=== PATIENT | female | born 1970 | race Caucasian/White ===

== ENCOUNTER → 2019-01-21 | Outpatient (CLI) | payer OTHER ==
--- NOTE | 2019-01-23 18:21 | WOMENS IMAGING REPORT ---
EXAM DESCRIPTION: 3D SCREENING MAMMO BILAT COMPLETED DATE/TIME: 01/21/2019 7:50 am REASON FOR STUDY: Z12.31 ENCOUNTER FOR SCREENING MAMMOGRAM FOR MALIGNANT NEOPLASM OF BREAST Z12.31 ENCNTR SCREEN MAMMOGRAM FOR MALIGNANT NEOPLASM OF [place] COMPARISON: None. EXAM PARAMETERS: Views: Standard craniocaudal and mediolateral oblique views of each breast recorded using digital acquisition and breast tomosynthesis. Read with the assistance of CAD. .[facility] [place] [employer] Version 9.2 LIMITATIONS: None. FINDINGS: No suspicious masses, suspicious calcifications or architectural distortion. No areas of c oncern. IMPRESSION: NEGATIVE MAMMOGRAM. BIRADS 1. BREAST DENSITY: b. There are scattered areas of fibroglandular density. BIRAD: ASSESSMENT: 1 NEGATIVE RECOMMENDATION: ROUTINE SCREENING COMMENT: The patient has been notified of the results by letter per MQSA requirements. Additional no tification policies are in place for contacting patient with suspicious or incomplete findings. Quality ID #[id number]: [employer] recommends an annual screening mammogram for women aged 40 years or over. This facility utilizes a reminder system to ensure that all patients receive reminder letters, and/or direct phone calls for appointments. This includes reminders for routine scr eening mammograms, diagnostic mammograms, or other Breast Imaging Interventions when appropriate. Th is patient will be placed in the appropriate reminder system. TECHNICAL DOCUMENTATION: FINDING NUMBER: (1) ASSESSMENT: (1) JOB ID: [id number] [employer]- All Rights Reserved Reading location - IP/workstation name: [email or web address]
== END ==
LOC: WI 07:28
PROVIDERS: ATTEND Advanced Practice Midwife
DX: Z12.31 Encounter for screening mammogram for malignant neoplasm of breast (principal)
CPT/HCPCS: 77063; 77067

== ENCOUNTER 2019-06-30 13:27 | Emergency (ER) | payer OTHER ==
--- NOTE | 2019-06-30 14:26 | ER Document Report ---
HPI - HPI Patient complains to provider of: Left wrist pain Time Seen by Provider: 06/30/19 14:19 Onset: Other Onset/Duration: Sudden, Persistent Pain Level: 3 Context: 49-year-old female presents to the emergency department with complaints of left wrist pain. She reports that approximately 1 week ago she was pushing big tubs of [place] supplies up into the attic when she hurt her wrist. She reports the pain was tolerable. Today when she went to lift up a heavy bag of dog food she felt a pop in her left wrist and has pain with supination pronation since that time. Possible fracture to the wrist when she was a child. Denies other symptoms such as fever vomiting diarrhea. No obvious deformity to the left wrist good radial pulse cap refill less than 2 seconds. Patient was offered Motrin but declined. Associated Symptoms: None Exacerbated by: Other - Supination pronation Relieved by: Denies Similar symptoms previously: No Recently seen / treated by doctor: No Past Medical History - General Information source: Patient - Social History Smoking Status: Never Smoker Frequency of alcohol use: Rare Drug Abuse: None Occupation: Works from home Lives with: Family Family History: None Patient has suicidal ideation: No Patient has homicidal ideation: No Endocrine Medical History: Reports: Hx Hypothyroidism Surgical Hx: Negative Vertical Provider Document - CONSTITUTIONAL Agree With Documented VS: Yes Exam Limitations: No Limitations General Appearance: WD/WN, No Apparent Distress - INFECTION CONTROL TRAVEL OUTSIDE OF THE [place] IN LAST 30 DAYS: No - HEENT HEENT: Atraumatic, Normocephalic - NECK Neck: Supple - RESPIRATORY Respiratory: Breath Sounds Normal, No Respiratory Distress - CARDIOVASCULAR Cardiovascular: Regular Rate, Regular Rhythm - MUSCULOSKELETAL/EXTREMETIES Musculoskeletal/Extremeties: MAEW, Tender - Left lateral wrist tender to palpate good radial pulse cap refill less than 2 seconds. No erythema no swelling no warmth no obvious deformity reports pain when moving her hand from supination to pronation and back - NEURO Level of Consciousness: Awake, Alert, Appropriate Motor/Sensory: No Motor Deficit - DERM Integumentary: Warm, Dry Course - Re-evaluation Re-evalutation: 06/30/19 14:24 49-year-old female with left wrist pain no obvious deformity no swelling no erythema no warmth. Reports that she hurt it when she was pushing some heavy tubs up to the attic and also hurting today when she was lifting heavy bag of dog food. 06/30/19 15:22 X-ray negative for fracture. Patient was instructed on cock-up splint for comfort also instructed to follow-up with primary care provider for referral to orthopedics as indicated. She verbalized understanding to all instructions. Wrist X-Ray 06/30/19 14:22 IMPRESSION: NEGATIVE STUDY OF THE LEFT WRIST. NO RADIOGRAPHIC EVIDENCE OF ACUTE INJURY. - Vital Signs Vital signs: Temp Pulse Resp BP Pulse Ox 97.6 F 81 16 134/78 H 95 06/30/19 13:31 06/30/19 13:31 06/30/19 13:31 06/30/19 13:31 06/30/19 13:31 - Diagnostic Test Radiology reviewed: Image reviewed, Reports reviewed Procedures - Immobilization Left Wrist Pre-Proc Neuro Vasc Exam: Normal Immobilizer type: Cock-up Performed by: PCT Post-Proc Neuro Vasc Exam: Unchanged from pre-exam Discharge - Discharge Clinical Impression: Left wrist pain Condition: Stable Disposition: HOME, SELF-CARE Instructions: Use of [id number]-[id number]-Ohdlpwf Ibuprofen ([facility]), Ice & Elevation ([facility]), Temporary Splint ([facility]) Additional Instructions: *You have been evaluated for left wrist pain The x-ray was negative for an acute fracture *Maintain the splint for comfort *Rest/Ice/Elevate your wrist *Follow up with orthopedics within 1 week for recheck Take Tylenol Motrin as indicated for pain *Return to ED for worsening condition, changes, needs Referrals: RUPERT HUI CNM [CERTIFIED NURSE SERVICE CENTER SUPERVISOR] - Follow up in 1 week
--- NOTE | 2019-06-30 15:11 | RADIOLOGY REPORT (SQ) ---
EXAM DESCRIPTION: WRIST LEFT 3 VIEWS COMPLETED DATE/TIME: 06/30/2019 3:01 pm REASON FOR STUDY: pain felt pop, increased pain with sup/pron COMPARISON: None. NUMBER OF VIEWS: Three views. TECHNIQUE: AP, lateral, and oblique radiographic images acquired of the left wrist. LIMITATIONS: None. FINDINGS: MINERALIZATION: Normal. BONES: No acute fracture or dislocation. No worrisome bone lesions. Normal alignment. SOFT TISSUES: No soft tissue swelling. No foreign body. OTHER: No other significant finding. IMPRESSION: NEGATIVE STUDY OF THE LEFT WRIST. NO RADIOGRAPHIC EVIDENCE OF ACUTE INJURY. TECHNICAL DOCUMENTATION: JOB ID: [id number] [employer]- All Rights Reserved Reading location - IP/workstation name: [email or web address]
[2019-06-30 15:38] VITALS: BP 132/74
== END 2019-06-30 15:40 | disposition home or self-care (01) ==
LOC: ER 13:27
DX: M25.532 Pain in left wrist (principal)
CPT/HCPCS: 99283; 73110; L3908